=== PATIENT | female | born 1960 | race Caucasian/White ===

== ENCOUNTER → 2023-08-12 07:09 | Outpatient (REF) | payer OTHER, SELFPAY | LOC: HWRAD 07:09 | PROVIDERS: ATTENDING PHYSICIAN Physician Assistant Medical | DX: R05.3 Chronic cough (principal) | CPT/HCPCS: 71046 ==

== ENCOUNTER → 2023-09-17 07:33 | Outpatient (REF) | payer OTHER, SELFPAY | LOC: HWRAD 07:33 | PROVIDERS: ATTENDING PHYSICIAN Internal Medicine Critical Care Medicine; FAMILY PHYSICIAN Physician Assistant Medical | DX: R05.9 Cough, unspecified (principal); J40 Bronchitis, not specified as acute or chronic | CPT/HCPCS: 71250 ==

== ENCOUNTER 2023-12-13 14:23 | Outpatient (RCR) | payer OTHER, SELFPAY | END 2023-12-13 23:59 | disposition home or self-care (01) | LOC: RST 14:23 | PROVIDERS: ATTENDING PHYSICIAN Internal Medicine Critical Care Medicine | DX: R05.9 Cough, unspecified (principal); R49.0 Dysphonia; R13.10 Dysphagia, unspecified; J45.909 Unspecified asthma, uncomplicated | CPT/HCPCS: 92507; 92524 ==

== ENCOUNTER 2024-01-22 15:56 | Outpatient (RCR) | payer OTHER, SELFPAY | END 2024-01-22 23:59 | disposition home or self-care (01) | LOC: RST 15:56 | PROVIDERS: ATTENDING PHYSICIAN Internal Medicine Critical Care Medicine | DX: R05.9 Cough, unspecified (principal); J45.909 Unspecified asthma, uncomplicated; R49.0 Dysphonia; R13.10 Dysphagia, unspecified | CPT/HCPCS: 92507 ==

== ENCOUNTER 2024-01-28 16:15 | Outpatient (RCR) | payer OTHER, SELFPAY | END 2024-01-28 23:59 | disposition home or self-care (01) | LOC: RST 16:15 | PROVIDERS: ATTENDING PHYSICIAN Internal Medicine Critical Care Medicine | DX: R05.9 Cough, unspecified (principal); R49.0 Dysphonia; R13.10 Dysphagia, unspecified; J45.909 Unspecified asthma, uncomplicated | CPT/HCPCS: 92507 ==